=== PATIENT | female | born 1970 | race Caucasian/White ===

== ENCOUNTER 2020-09-12 17:24 | Emergency (ER) | payer OTHER, SELFPAY ==
[2020-09-12 17:26] VITALS: BP 145/78; PULSE 97; RESP 16; TEMP 36.6; O2SAT 100; BMI 20.2
--- NOTE | 2020-09-12 17:44 | ED.VIS.GEN ---
History of Present Illness Chief Complaint: Cough Narrative: This patient is a 50-year-old female who presents with cough and headache. She has had a cough for about 2 weeks. Her symptoms initially began with URI-like illness with congestion and rhinorrhea. She has had 3 negative Covid tests and also recently had a normal chest x-ray just a few days ago. She has had some headaches. Today after coughing she developed a severe headache. This is not the worst headache of her life. She initially took Maxalt without relief. She then took Fioricet with some mild relief of symptoms. She did vomit once. No fevers. She does have a history of migraines and depression. Her physician said that if she was not improving that she should go to the emergency department for evaluation for possible meningitis. Past Medical History - Allergies and Home Meds Allergies/Adverse Reactions: Allergies No Known Allergies Allergy (Verified 09/12/20 17:29) Primary Care Physician: Shara Roberts MD [Primary Care Provider] - Past Medical History: - - Migraines, depression Smoking Status: Never smoker Review of Systems All systems negative except as indicated General: Denies: Fever ENT: Reports: - - Congestion, rhinorrhea Cardiovascular: Denies: Chest pain Respiratory: Reports: Cough, Sputum. Denies: Dyspnea Gastrointestinal: Reports: Nausea, Vomiting. Denies: Abdominal pain, Diarrhea Musculoskeletal: Denies: Myalgias, Arthralgias, Extremity Pain Skin: Denies: Rash Neurological: Reports: Headache Hematologic: Denies: Easy bruising Allergy: Denies: Uticaria Physical Exam Vital Signs/Narrative: Vital Signs Temp Pulse Resp BP Pulse Ox 09/12/20 17:26 97.9 F 97 16 145/78 H 100 Inital Vital Signs reviewed: Yes General: Well nourished Head: Normocephalic Eyes: EOMI ENT: Moist mucous membranes Neck: Supple, - - Neck is supple, no nuchal rigidity, no meningismus Cardiovascular: Regular rate, Regular rhythm Respiratory: No distress, CTA bilaterally Abdomen: Soft, Nontender Skin: Normal color Neurological: Alert Psychological: Normal affect Diagnostic/Tx/Re-eval - Medical Decision Making Patient was treated with IV fluids Toradol and Reglan. She is resting comfortably on reevaluation. She reports about a 50% improvement in her symptoms. Her pain is at a tolerable level and she would prefer to go home. Patient does understand to return for new or worsening symptoms. Patient discharged. ED Disposition - Plan for ED Patient: Disposition: Home or Assisted Living Diagnosis: Viral syndrome, Headache Instructions: ED Viral Syndrome, ED, Migraine (Classical) Referrals: Shara Roberts MD [Primary Care Provider] -
[2020-09-12] MEDS: Ketorolac 30 MG/ML Syringe IV (17:51)
[2020-09-12] MEDS: 0.9% Normal Saline 1,000 ML 999 ML IV (17:51)
[2020-09-12] MEDS: Metoclopramide 10 MG/2 ML Vial IV (17:51)
[2020-09-12 18:32] VITALS: BP 134/53; PULSE 67; RESP 15
== END 2020-09-12 18:51 | disposition home or self-care (01) ==
LOC: ED 18:49
PROVIDERS: Emergency Provider Emergency Medicine; PCP Internal Medicine
DX: B34.9 Viral infection, unspecified (principal); R51.9 Headache, unspecified; F32.9 Major depressive disorder, single episode, unspecified
CPT/HCPCS: 96361; 96374; 96375; 99283